=== PATIENT | female | born 1950 | race Caucasian/White ===

== ENCOUNTER 2020-10-03 12:00 | Observation (INO) | payer MEDICARE ==
[2020-10-02 11:49] LABS: BASOPHILS % (AUTO) 0.7 % (0.0-5.0); EOSINOPHILS % (AUTO) 0.7 % (0.0-8.0); HEMATOCRIT 42.7 % (36-48); LYMPHOCYTES % (AUTO) 27.6 % (21.0-51.0); MEAN CORPUSCULAR HEMOGLOBIN 32.7 pg (27.0-33.0); MEAN CORPUSCULAR VOLUME 96.2 fL (79-99); MONOCYTES % (AUTO) 8.8 % (3.0-13.0); NEUTROPHILS % (AUTO) 61.9 % (40.0-77.0); PLATELET COUNT (AUTO) 269 K/uL (130-400); RED BLOOD CELL COUNT(AUTO) 4.44 MIL/uL (4.00-5.50); RED CELL DISTRIBUTION WIDTH 11.6 % (11.0-15.5); WHITE BLOOD COUNT (AUTO) 6.8 K/uL (4.8-10.8)
[2020-10-02 12:01] LABS: CREATININE 0.7 mg/dL (0.5-1.5)
[~2020-10-03] VITALS: Ht 165.1 cm; Wt 54.4 kg
[2020-10-07 08:46] VITALS: BP 163/97
[2020-10-07] MEDS ORDERED: ASCO100031 PO (09:27)
[2020-10-07] MEDS ORDERED: CALC600T15 PO (09:27)
[2020-10-07] MEDS ORDERED: ZINC220T4 PO (09:27)
[2020-10-07] MEDS ORDERED: BACL10TA PO (09:27)
[2020-10-07] MEDS ORDERED: IRON PO (09:27)
[2020-10-07] MEDS ORDERED: VITAMIN E PO (09:27)
[2020-10-07] MEDS ORDERED: CALC-866 PO (09:27)
[2020-10-07] MEDS ORDERED: MVI PO (09:27)
[2020-10-07] MEDS ORDERED: AMLO-257 PO (09:27)
[2020-10-08] VITALS (25 sets, daily range): BP systolic 92–172; BP diastolic 52–103
[2020-10-08] MEDS ORDERED: LACTATED RINGERS 1000ML 1,000 ML IV ONE (06:22)
[2020-10-08] MEDS ORDERED: CEFAZOLIN SODIUM 1 GM VIAL ONE ×2 (06:22→06:49)
[2020-10-08] MEDS ORDERED: THROMBIN-JMI 20000 UNIT KIT TP ONE (06:49)
[2020-10-08] MEDS ORDERED: DURAMORPH PF1 MG/ML 10ML AMP IV ONE (06:49)
[2020-10-08] MEDS ORDERED: BUPIVACAINE/EPI/PF 0.25% 30ML VIAL IJ ONE (06:49)
[2020-10-08] MEDS ORDERED: SUCCINYLCHOLINE CHLORIDE 20 MG/ML 10 ML VIAL ONE (07:08)
[2020-10-08] MEDS ORDERED: LIDOCAINE PF 2% 5ML ABBOJECT ONE (07:08)
[2020-10-08] MEDS ORDERED: PHENYLEPHRINE HCL 10 MG/ML 1ML VIAL IV ONE (07:08)
[2020-10-08] MEDS ORDERED: ROCURONIUM 10MG/1ML SYR 10 MG/ML ML ONE (07:10)
[2020-10-08] MEDS ORDERED: FENTANYL CITRATE PF 50 MCG/1 ML 2ML VIAL ONE (07:10)
[2020-10-08] MEDS ORDERED: PROPOFOL 10 MG/ML 20ML VIAL IV ONE (07:10)
[2020-10-08] MEDS ORDERED: MIDAZOLAM HCL 1 MG/ML 2ML VIAL ONE (07:29)
[2020-10-08] MEDS ORDERED: GLYCOPYRROLATE 1 MG/5 ML SYRINGE ONE (07:52)
[2020-10-08] MEDS ORDERED: CEFAZOLIN SODIUM 1 GM VIAL IVP ONE (08:00)
[2020-10-08] MEDS ORDERED: NEOSTIGMINE 5MG/5ML SYR IV ONE (09:21)
[2020-10-08] MEDS ORDERED: KETOROLAC TROMETHAMINE 30MG/ML ONE (09:21)
[2020-10-08] MEDS ORDERED: ONDANSETRON HCL 4 MG/2 ML VIAL ONE (09:25)
[2020-10-08] MEDS ORDERED: HYDROCODONE/ACETAMINOPHEN 5/325 MG TAB PO PRN (09:45)
[2020-10-08] MEDS: CEFAZOLIN SODIUM 1 GM VIAL IVP SCH ×3 (09:45→20:05)
[2020-10-08] MEDS ORDERED: SODIUM CHLORIDE 0.9% 10 ML VIAL IVP PRN (09:45)
[2020-10-08] MEDS ORDERED: MORPHINE SULFATE 2 MG/ML 1ML SYG IVP PRN (09:45)
[2020-10-08] MEDS ORDERED: DEXAMETHASONE SOD PHOSPHATE 4 MG/ML 1ML VIAL IVP SCH (09:45)
[2020-10-08] MEDS: LACTATED RINGERS 1000ML 1,000 ML IV SCH ×2 (09:45→20:04)
[2020-10-08] MEDS ORDERED: PROMETHAZINE HCL 25 MG/ML 1ML AMPULE IM PRN (09:45)
[2020-10-08] MEDS: DEXAMETHASONE SOD PHOSPHATE 4 MG/ML 1ML VIAL IVP SCH (17:48)
[2020-10-08] MEDS ORDERED: BACLOFEN 10 MG TABLET PO SCH (21:00)
[2020-10-08] MEDS ORDERED: AMLODIPINE BESYLATE 5 MG TAB PO SCH (21:00)
[2020-10-09] VITALS: BP 100/56
[2020-10-09] MEDS: DEXAMETHASONE SOD PHOSPHATE 4 MG/ML 1ML VIAL IVP SCH ×2 (00:08→05:43)
[2020-10-09 04:00] VITALS: BP 104/59
[2020-10-09 08:05] VITALS: BP 135/79
[2020-10-09] MEDS ORDERED: ASCORBIC ACID 500 MG TAB PO SCH (09:00)
[2020-10-09] MEDS ORDERED: **HM** VIT D3 125MCG PO SCH (09:00)
[2020-10-09] MEDS ORDERED: VITAMIN E 400 UNIT CAPSULE PO SCH (09:00)
[2020-10-09] MEDS ORDERED: ZINC SULFATE 220 CAPSULE PO SCH (09:00)
[2020-10-09] MEDS ORDERED: MULTIVITAMIN TABLET PO SCH (09:00)
[2020-10-09] MEDS ORDERED: CALCIUM CARBONATE 500 MG TABLET PO SCH (09:00)
[2020-10-10] MEDS ORDERED: FERROUS SULFATE 325 MG TABLET.DR PO SCH (09:00)
== END 2020-10-09 11:55 | disposition home or self-care (01) ==
LOC: EDSTATUS 12:00 → DAHIP 10-08 05:56 → 3AH 10-08 10:19
PROVIDERS: ADMIT Neurological Surgery; ATTEND Neurological Surgery
DX: M51.16 Intervertebral disc disorders with radiculopathy, lumbar region (principal); Z20.822 Contact with and (suspected) exposure to COVID-19; I10 Essential (primary) hypertension; Z79.899 Other long term (current) drug therapy
CPT/HCPCS: 36415; 63047; 71045; 72020; 80048; 85025; 96361; 96374; 96375; 96376 ×2; A4215; A4221; A4222; A4223; A4344; A4649 ×2; A4663; A6260; G0378 ×26; J0330; J0690 ×4; J1100 ×5; J1885; J2001; J2250; J2274; J2370; J2405; J2704; J2710; J3010; J3490 ×2; J7120 ×3; U0003

== ENCOUNTER 2021-07-04 06:43 | Emergency (ER) | payer MEDICARE ==
[~2021-07-04] VITALS: Ht 165.1 cm; Wt 55.3 kg
[~2021-07-04 06:43] MED LIST: AMLO-257 PO; ASCO100031 PO; BACL10TA PO; CALC-1125 PO; CALC-866 PO; IRON PO; MVI PO; VITAMIN E PO; ZINC220T4 PO
[2021-07-04] MEDS ORDERED: OCTYL 2-CYANOACRYLATE 1 EACH TP ONE (08:36)
[2021-07-04 08:46] VITALS: BP 139/78
[2021-07-04] MEDS: LIDOCAINE HCL-MPF 2% 5ML VIAL ONE ×2 (08:49→08:54)
[2021-07-04] MEDS ORDERED: ONDA4TAB10 PO (08:52)
== END 2021-07-04 08:59 | disposition home or self-care (01) ==
LOC: EDH 06:43
DX: S01.81XA Laceration without foreign body of other part of head, initial encounter (principal); Z79.899 Other long term (current) drug therapy; W06.XXXA Fall from bed, initial encounter; Y93.89 Activity, other specified; Y92.89 Other specified places as the place of occurrence of the external cause; Y99.8 Other external cause status
CPT/HCPCS: 12011; 70450; J3490

== ENCOUNTER 2023-03-07 11:00 | Observation (INO) | payer OTHER ==
[~2023-03-07] VITALS: Ht 165.1 cm; Wt 56.7 kg
[2023-03-07 10:14] LABS: BASOPHILS # (AUTO) 0.04 K/uL (0.00-0.20); BASOPHILS % (AUTO) 0.7 % (0.0-5.0); EOSINOPHILS # (AUTO) 0.07 K/uL (0.00-0.70); EOSINOPHILS % (AUTO) 1.3 % (0.0-8.0); HEMATOCRIT 42.6 % (36-48); IMMATURE GRANULOCYTE ABSOLUTE 0.02 K/uL (0-1); LYMPHOCYTES # (AUTO) 1.4 K/uL (1.0-4.8); LYMPHOCYTES % (AUTO) 24.6 % (21.0-51.0); MEAN CORPUSCULAR HEMOGLOBIN 32.3 pg (27.0-33.0); MEAN CORPUSCULAR HGB CONC 33.3 g/dL (32.0-36.0); MEAN CORPUSCULAR VOLUME 96.8 fL (79-99); MONOCYTES # (AUTO) 0.5 K/uL (0.1-1.0); MONOCYTES % (AUTO) 9.4 % (3.0-13.0); NEUTROPHILS # (AUTO) 3.5 K/uL (1.8-7.7); NEUTROPHILS % (AUTO) 63.6 % (40.0-77.0); PLATELET COUNT (AUTO) 259 K/uL (130-400); RED CELL DISTRIBUTION WIDTH 11.9 % (11.0-15.5); WHITE BLOOD COUNT (AUTO) 5.6 K/uL (4.8-10.8)
[2023-03-07 10:25] LABS: CREATININE 0.7 mg/dL (0.5-1.5); POTASSIUM 4.5 mmol/L (3.5-5.1)
[2023-03-07 10:27] VITALS: BP 179/83; PULSE 66; RESP 18
[~2023-03-07 11:00] MED LIST changes: -ASCO100031 PO; -BACL10TA PO; -CALC-1125 PO; -CALC-866 PO; +GABA-529 PO; -IRON PO; -MVI PO; -VITAMIN E PO; -ZINC220T4 PO
[2023-03-08] VITALS (35 sets, daily range): BP systolic 107–164; BP diastolic 48–104; PULSE 65–86; RESP 12–20; O2SAT 95–100
[2023-03-08] MEDS ORDERED: LACTATED RINGERS 1000ML 1,000 ML IV ONE (06:37)
[2023-03-08] MEDS ORDERED: CEFAZOLIN SODIUM 2 GM VIAL ONE (06:38)
[2023-03-08] MEDS: LIDOCAINE 2%-EPI PF 30 ML+BUPIVACAINE/PF 0.25% 30ML /60ML SYR IJ SCH ×4 (07:00→08:07)
[2023-03-08] MEDS ORDERED: MORPHINE PF 100MG/10ML AMP IV ONE (07:17)
[2023-03-08] MEDS ORDERED: CEFAZOLIN SODIUM 1 GM VIAL ONE (07:17)
[2023-03-08] MEDS ORDERED: THROMBIN-JMI 20000 UNIT KIT TP ONE (07:17)
[2023-03-08] MEDS ORDERED: PROPOFOL 10 MG/ML 20ML VIAL IV ONE (07:18)
[2023-03-08] MEDS ORDERED: MIDAZOLAM HCL 1 MG/ML 2ML VIAL ONE (07:18)
[2023-03-08] MEDS ORDERED: ONDANSETRON 4MG INJ ONE (07:18)
[2023-03-08] MEDS ORDERED: ROCURONIUM 10MG/1ML SYR 10 MG/ML ML ONE (07:19)
[2023-03-08] MEDS ORDERED: FENTANYL CITRATE PF 50 MCG/1 ML 5ML AMP IV ONE (07:19)
[2023-03-08] MEDS ORDERED: PROPOFOL 1000 MG/100 ML 100 ML IV ONE (07:30)
[2023-03-08] MEDS ORDERED: MAGNESIUM SULFATE 1 GM/2 ML VIAL ONE (07:31)
[2023-03-08] MEDS ORDERED: KETAMINE 50MG/ML SYRINGE 50 MG/ML DISP.SYRIN ONE (07:31)
[2023-03-08] MEDS ORDERED: DEXAMETHASONE SOD PHOSPHATE 10MG/ML 1ML VIAL ONE (07:59)
[2023-03-08] MEDS ORDERED: GLYCOPYRROLATE 1 MG/5 ML SYRINGE ONE ×2 (08:09→10:19)
[2023-03-08] MEDS ORDERED: EPHEDRINE SULFATE 50 MG/ML AMPULE ONE (08:14)
[2023-03-08] MEDS ORDERED: PHENYLEPHRINE HCL 10 MG/ML 1ML VIAL IV ONE (08:17)
[2023-03-08] MEDS ORDERED: NEOSTIGMINE 5MG/5ML SYR IV ONE (10:19)
[2023-03-08] MEDS ORDERED: FENTANYL CITRATE PF 50 MCG/1 ML 2ML VIAL ONE (10:19)
[2023-03-08] MEDS ORDERED: PROMETHAZINE HCL 25 MG/ML 1ML AMPULE IM PRN (10:30)
[2023-03-08] MEDS ORDERED: 0.9%NACL 10ML VIAL IVP PRN (10:30)
[2023-03-08] MEDS ORDERED: HYDROCODONE/ACETAMINOPHEN 5/325 MG TAB PO PRN (10:30)
[2023-03-08] MEDS ORDERED: MORPHINE 2 MG SYG IVP PRN (10:30)
[2023-03-08] MEDS: LACTATED RINGERS 1000ML 1,000 ML IV SCH ×2 (14:33→23:50)
[2023-03-08] MEDS: DEXAMETHASONE SOD PHOSPHATE 4 MG/ML 1ML VIAL IVP SCH ×3 (17:20→22:03)
[2023-03-08] MEDS: CEFAZOLIN SODIUM 2 GM VIAL IVPB SCH ×2 (17:20→18:30)
[2023-03-08] MEDS ORDERED: AMLODIPINE 5 MG TAB PO SCH (21:00)
[2023-03-09 00:28] VITALS: BP 110/58; PULSE 60; RESP 18
[2023-03-09 04:00] VITALS: BP 113/57; PULSE 57; RESP 18
[2023-03-09] MEDS: DEXAMETHASONE SOD PHOSPHATE 4 MG/ML 1ML VIAL IVP SCH (06:54)
[2023-03-09 08:00] VITALS: BP 125/65; PULSE 62; RESP 18
[2023-03-09] MEDS ORDERED: GABAPENTIN 100 MG CAPSULE PO SCH (09:00)
== END 2023-03-09 09:10 | disposition home or self-care (01) ==
LOC: EDSTATUS 11:00 → DAHIP 03-08 05:56 → 4AH 03-08 13:39
PROVIDERS: ADMIT Neurological Surgery; ATTEND Neurological Surgery
DX: M51.26 Other intervertebral disc displacement, lumbar region (principal); M47.896 Other spondylosis, lumbar region; I10 Essential (primary) hypertension; J44.9 Chronic obstructive pulmonary disease, unspecified; Z87.891 Personal history of nicotine dependence; Z90.711 Acquired absence of uterus with remaining cervical stump; Z79.899 Other long term (current) drug therapy; Z98.890 Other specified postprocedural states
CPT/HCPCS: 80048; 85025; 36415; 71045; 63042; 96376 ×2; 96365; 96375; 72020; J1100 ×4; G0378 ×20; G0379; A4510; A4600; A4663; J7030; J7120 ×2; A4344; J3010 ×2; J0690 ×3; J3490 ×6; J2710; J3475; J2250; J2704 ×2; J2274; J2405; J2371; A4649; A4215; A4223; A4222; A4221